=== PATIENT | female | born 1970 | race African-American/Black ===

== ENCOUNTER 2018-08-18 19:59 | Emergency (ER) | payer MEDICAID ==
[~2018-08-18] VITALS: Ht 152.4 cm; Wt 98.0 kg
[2018-08-18] MEDS ORDERED: IBUPROFEN 600MG TABLET PO ONE (23:00)
[2018-08-19 00:45] VITALS: BP 132/89
== END 2018-08-19 00:47 | disposition home or self-care (01) ==
LOC: ER 19:59
DX: S16.1XXA Strain of muscle, fascia and tendon at neck level, initial encounter (principal); R51 Headache; M25.512 Pain in left shoulder; V49.49XA Driver injured in collision with other motor vehicles in traffic accident, initial encounter; Y93.89 Activity, other specified; Y92.410 Unspecified street and highway as the place of occurrence of the external cause
CPT/HCPCS: 73030; 99284